=== PATIENT | male | born 1975 | race American Indian/Alaskan Native ===

== ENCOUNTER 2019-10-04 17:56 | Emergency (ER) | payer OTHER ==
[2019-10-04] MEDS ORDERED: BACITRACIN ZINC OINT 28.4 GM TP STA (21:17)
--- NOTE | 2019-10-04 21:24 | Emergency Department Report ---
ED General Adult HPI - General Chief complaint: Wound/Laceration Stated complaint: MOUTH PAIN Time Seen by Provider: 10/04/19 21:16 Source: patient Mode of arrival: Wheelchair Limitations: No Limitations - History of Present Illness Initial comments: 44-year-old -[place] male inmate presents status post basketball injury states he was playing basketball and fell against the wall causing an abrasion to his left elbow swelling and pain to his right upper lip and swelling pain deformity to the left fifth digit -: Gradual Radiation: non-radiation Quality: dull Consistency: constant Improves with: none Worsens with: none Associated Symptoms: denies other symptoms. denies: cough, diaphoresis, loss of appetite, malaise, shortness of breath, syncope Treatments Prior to Arrival: none - Related Data Allergies Allergy/AdvReac Type Severity Reaction Status Date / Time No Known Allergies Allergy Verified 10/04/19 21:19 ED Review of Systems ROS: Stated complaint: MOUTH PAIN Other details as noted in HPI Comment: All other systems reviewed and negative ED Past Medical Hx - Past Medical History Previous Medical History?: No - Surgical History Past Surgical History?: No - Social History Smoking Status: Never Smoker Substance Use Type: None ED Physical Exam - General Limitations: No Limitations General appearance: alert, in no apparent distress - Head Head exam: Present: atraumatic, normocephalic, other (Intraoral laceration to the left upper lip partial-thickness 1 cm in length) - Eye Eye exam: Present: normal appearance, PERRL, EOMI Pupils: Present: normal accommodation - ENT ENT exam: Present: normal exam, mucous membranes moist - Neck Neck exam: Present: normal inspection, full ROM. Absent: tenderness, lymphadenopathy - Respiratory Respiratory exam: Present: normal lung sounds bilaterally. Absent: respiratory distress, wheezes, rales, rhonchi, chest wall tenderness, accessory muscle use - Cardiovascular Cardiovascular Exam: Present: regular rate, normal rhythm, normal heart sounds. Absent: systolic murmur, diastolic murmur, rubs, gallop - GI/Abdominal GI/Abdominal exam: Present: soft, normal bowel sounds. Absent: distended, tenderness, hyperactive bowel sounds, hypoactive bowel sounds - Rectal Rectal exam: Present: deferred - Extremities Exam Extremities exam: Present: normal inspection, tenderness, joint swelling - Expanded Upper Extremity Exam Left Elbow exam: Present: full ROM, tenderness, abrasion. Absent: laceration, ecchymosis, deformity, crepidus, dislocation, erythema Hand Wrist exam: Present: tenderness, swelling, deformity. Absent: crepidus, dislocation, amputation, nail avulsion, subungual hematoma Hand L/R Back: 1 - Swelling tenderness. - Back Exam Back exam: Present: normal inspection - Neurological Exam Neurological exam: Present: alert, oriented X3 - Psychiatric Psychiatric exam: Present: normal affect, normal mood - Skin Skin exam: Present: warm, dry, intact, normal color. Absent: rash ED Course Vital Signs 10/04/19 18:02 Temperature 98.2 F Pulse Rate 72 Respiratory 16 Rate Blood Pressure 110/72 O2 Sat by Pulse 100 Oximetry ED Medical Decision Making - EKG Data When compared to previous EKG there are: no significant change Interpretation: no acute changes - Radiology Data Radiology results: report reviewed [facility] [address] [place] [address] XRay Report Signed Patient: NONA DODD MR#: [id number] : 1975 Acct:[id number] Age/Sex: 44 / M ADM Date: 10/04/19 Loc: ED Attending Dr: Ordering Physician: ASH SALINAS Date of Service: 10/04/19 Procedure(s): XR hand 3+V LT Accession Number(s): [id number] cc: ASH SALINAS Fluoro Time In Minutes: EXAMINATION: Left hand radiograph, 3 views CLINICAL INFORMATION: Finger pain and deformity COMPARISON: None. FINDINGS: There is dislocation of the fifth digit at the proximal interphalangeal joint with associated soft tissue swelling. Remaining bony structures demonstrate no focal abnormality. IMPRESSION: Dislocation of the proximal interphalangeal joint of the fifth digit. Signer Name: Evette Rothman MD Signed: 10/04/2019 10:44 PM Workstation Name: [id number] Transcribed By: EB Dictated By: Evette Rothman MD Electronically Authenticated By: Evette Rothman MD Signed Date/Time: 10/04/19 2244 DD/DT: 10/03 - Medical Decision Making 44-year-old [place] male with a dislocated left fifth digit and initially stated it happened a few hours ago after further investigation and failed reduction attempt he admitted to this this injury when a month to month and a half old. His abrasions were cleaned and dressed lip laceration was discussed at this point there is no sutures needed. States he is due to fly go home in 6 days from present advised him to follow-up with orthopedic for definitive management. Critical care attestation.: If time is entered above; I have spent that time in minutes in the direct care of this critically ill patient, excluding procedure time. ED Disposition Clinical Impression: Elbow abrasion, Lip laceration, Dislocation, finger, interphalangeal joint Disposition: -01 TO HOME OR SELFCARE Is pt being admited?: No Does the pt Need Aspirin: No Condition: Stable Instructions: Laceration (ED), Abrasion (ED), Finger Dislocation (ED) Referrals: JANIA CELESTE MD [Staff Physician] - 3-5 Days
[2019-10-05] MEDS ORDERED: NEOMY 3.5 MG/BACIT 400 UNITS/POLY B 5000 UNITS/GM OINT PACKET TP ONE (00:27)
[2019-10-05 00:42] VITALS: BP 112/85
== END 2019-10-05 00:40 | disposition home or self-care (01) ==
LOC: ED 17:56
DX: S63.287A Dislocation of proximal interphalangeal joint of left little finger, initial encounter (principal); S01.511A Laceration without foreign body of lip, initial encounter; S50.312A Abrasion of left elbow, initial encounter; W22.01XA Walked into wall, initial encounter; Y93.67 Activity, basketball; Y92.89 Other specified places as the place of occurrence of the external cause; Y99.8 Other external cause status
CPT/HCPCS: A6250